=== PATIENT | male | born 1970 | race Caucasian/White ===

== ENCOUNTER 2016-12-09 11:21 | Inpatient (IN) | payer BC ==
[~2016-12-09] VITALS: Ht 182.9 cm; Wt 107.1 kg
[2016-12-09] MEDS ORDERED: SODIUM CHLORIDE 0.9% 1,000 ML IV ONE ×2 (12:32)
[2016-12-09] MEDS ORDERED: MORPHINE SULFATE 4 MG/ML SYRG IV ONE (12:45)
[2016-12-09] MEDS ORDERED: ONDANSETRON HCL 4 MG/2 ML VIAL IV ONE (12:45)
[2016-12-09] MEDS ORDERED: cefTRIAXone 1GM/50ML D5W 50 ML IV ONE ×2 (12:45→15:00)
[2016-12-09 12:52] LABS: Basophils # (auto) 0 uL; Basophils % (auto) 0.1 % (0.0-2.0); CONDITION Y; Eosinophils # (auto) 0.4 uL; Eosinophils % (auto) 1.7 % (0.0-7.0); Hematocrit 47.3 % (41.0-53.0); Hemoglobin 16.2 g/dL (13.5-17.5); Lymphocytes # (auto) 2.4 uL; Lymphocytes % (auto) 11.9 % (10.0-50.0); Mean Corpuscular Hemoglobin 30.9 pg (28.0-32.0); Mean Corpuscular Hgb Conc. 34.3 g/dL (32.0-36.0); Mean Platelet Volume 7.8 fL (7.4-10.4); Monocytes # (auto) 0.7 uL; Monocytes % (auto) 3.6 % (0.0-12.0); Neutrophils # (auto) 16.7 uL; Neutrophils % (auto) 82.7 % (37.0-80.0); Platelet Count (auto) 332 10^3/uL (140-450); Red Cell Distribution Width 13.6 % (11.6-16.0); White Blood Cell 20.3 10^3/uL (4.4-10.8)
[2016-12-09 13:00] LABS: Urine RBC None Seen /hpf (0 - 3)
[2016-12-09 13:06] LABS: Albumin 4.3 g/dL (3.4-5.0); Calcium 9.2 mg/dL (8.5-10.1); Potassium 3.9 mmol/L (3.5-5.1)
[2016-12-09 13:08] LABS: BUN/Creatinine Ratio 12.5
[2016-12-09 13:11] LABS: Bilirubin, Total 0.5 mg/dL (0.2-1.0); Total Protein 7.8 g/dL (6.4-8.2)
[2016-12-09] MEDS ORDERED: HYDROmorphone HCL 2 MG/ML VL IV ONE (13:15)
[2016-12-09 13:30] LABS: INR 0.95 (0.9-1.15); Partial Thromboplastin Time 26.6 sec (22.64-33.71); Prothrombin Time 10.3 sec (9.37-12.3)
[2016-12-09 13:41] LABS: Urine Bilirubin Negative (Negative); Urine Blood Negative /uL (Negative); Urine Color Yellow (Yellow); Urine Glucose Normal (Normal); Urine Ketone TRACE (Negative); Urine Nitrite Negative (Negative); Urine Urobilinogen Normal (Negative); Urine pH 6.5 (5.0-8.0)
[2016-12-09] MEDS ORDERED: TEMAZEPAM 15 MG CAP PO PRN (15:00)
[2016-12-09] MEDS ORDERED: CLINDAMYCIN 900MG IV 50 ML IV ONE (15:00)
[2016-12-09] MEDS ORDERED: MORPHINE SULF INJ 2 MG/ML SYRINGE 1ML IV PRN (15:00)
[2016-12-09] MEDS ORDERED: HYDROcodone-ACET 5/325MG TAB PO PRN (15:00)
[2016-12-09] MEDS ORDERED: ACETAMINOPHEN 500 MG TAB PO PRN (15:00)
[2016-12-09] MEDS ORDERED: NITROGLYCERIN 0.4 MG SL TAB SL PRN (15:00)
[2016-12-09] MEDS ORDERED: LORazepam 0.5 MG TAB PO PRN (15:00)
[2016-12-09] MEDS ORDERED: MORPHINE SULFATE 4 MG/ML SYRG IV PRN (15:00)
[2016-12-09] MEDS ORDERED: metroNIDAZOLE 500MG/100ML 100 ML IV ONE (15:30)
[2016-12-09] MEDS: SODIUM CHLORIDE 0.9% 1,000 ML IV SCH ×2 (16:00→22:01)
[2016-12-09] MEDS ORDERED: LORazepam 2MG/ML-1ML VIAL ONE (16:02)
[2016-12-09] MEDS ORDERED: LORazepam 2MG/ML-1ML VIAL IV ONE (16:15)
[2016-12-09] MEDS ORDERED: MORPHINE SULF INJ 2 MG/ML SYRINGE 1ML ONE (16:21)
[2016-12-09] MEDS ORDERED: ENALAPRILAT 1.25 MG/ML-1ML VIAL IV PRN (16:45)
[2016-12-09] MEDS ORDERED: lamoTRIgine 25 MG TAB PO ONE (16:45)
[2016-12-09] MEDS ORDERED: DEXTROSE (50%) 50ML SYRG IV SCH (16:45)
[2016-12-09] MEDS: FAMOTIDINE (10MG/ML) 2ML VL IV SCH (16:53)
[2016-12-09] MEDS: MORPHINE SULF INJ 2 MG/ML SYRINGE 1ML IV PRN ×2 (16:55→21:54)
[2016-12-09] MEDS: PROMETHAZINE HCL 25 MG/ML 1ML IV PRN (16:55)
[2016-12-09] MEDS ORDERED: ACCU-CHEK COMFORT CURVE STRIP VI SCH (18:00)
[2016-12-09] MEDS ORDERED: InsuLIN REG 1unit/0.01ml Soln (100units/ml) SC SCH (18:00)
[2016-12-09] MEDS ORDERED: NORT25CA PO (18:36)
[2016-12-09] MEDS ORDERED: HYDR12.56 PO (18:36)
[2016-12-09] MEDS ORDERED: ESOM20CA PO (18:36)
[2016-12-09] MEDS ORDERED: LISI40TA PO (18:36)
[2016-12-09] MEDS ORDERED: LAMO100T44 PO (18:36)
[2016-12-09 20:00] VITALS: BP 138/91
[2016-12-09] MEDS ORDERED: SODIUM CHLORIDE 0.9% 100 ML IV SCH (20:00)
[2016-12-09] MEDS: CLINDAMYCIN 600MG IV 50 ML IV SCH (21:54)
[2016-12-09 22:00] VITALS: BP 138/91
[2016-12-09] MEDS: NORTRIPTYLINE HCL 10 MG CAP PO SCH (22:00)
[2016-12-10] MEDS: FAMOTIDINE (10MG/ML) 2ML VL IV SCH ×2 (02:22→15:00)
[2016-12-10] MEDS: MORPHINE SULF INJ 2 MG/ML SYRINGE 1ML IV PRN ×4 (04:28→20:16)
[2016-12-10] MEDS: PROMETHAZINE HCL 25 MG/ML 1ML IV PRN ×3 (04:28→13:45)
[2016-12-10 05:00] VITALS: BP 137/87
[2016-12-10 05:32] LABS: Basophils # (auto) 0 uL; Basophils % (auto) 0.2 % (0.0-2.0); CONDITION Y; Eosinophils # (auto) 0 uL; Hemoglobin 13.8 g/dL (13.5-17.5); Lymphocytes % (auto) 6.9 % (10.0-50.0); Mean Corpuscular Hemoglobin 30.5 pg (28.0-32.0); Mean Corpuscular Hgb Conc. 33.6 g/dL (32.0-36.0); Mean Corpuscular Volume 90.8 fL (80.0-100.0); Mean Platelet Volume 7.9 fL (7.4-10.4); Monocytes # (auto) 0.7 uL; Monocytes % (auto) 4.8 % (0.0-12.0); Neutrophils # (auto) 13.1 uL; Neutrophils % (auto) 88.1 % (37.0-80.0); Platelet Count (auto) 290 10^3/uL (140-450); Red Cell Distribution Width 13.7 % (11.6-16.0); White Blood Cell 14.9 10^3/uL (4.4-10.8)
[2016-12-10] MEDS: SODIUM CHLORIDE 0.9% 1,000 ML IV SCH ×4 (05:59→20:00)
[2016-12-10] MEDS: CLINDAMYCIN 600MG IV 50 ML IV SCH (05:59)
[2016-12-10 06:08] LABS: Albumin 3.4 g/dL (3.4-5.0); BUN/Creatinine Ratio 12.7; Bilirubin, Total 0.8 mg/dL (0.2-1.0); Calcium 8.1 mg/dL (8.5-10.1); Potassium 4.2 mmol/L (3.5-5.1); Total Protein 6.9 g/dL (6.4-8.2)
[2016-12-10 09:00] VITALS: BP 147/87
[2016-12-10] MEDS: cefTRIAXone 1GM/50ML D5W 50 ML IV SCH (09:06)
[2016-12-10 13:00] VITALS: BP 145/85
[2016-12-10] MEDS ORDERED: LIDOCAINE 1% HCL (LOCAL ANESTH.) INJ 20ML MDV ID ONE (15:00)
[2016-12-10] MEDS ORDERED: MORPHINE SULF INJ 2 MG/ML SYRINGE 1ML IV PRN (15:00)
[2016-12-10] MEDS: lamoTRIgine 25 MG TAB PO SCH (15:35)
[2016-12-10 16:10] LABS: Basophils # (auto) 0.1 uL; Basophils % (auto) 0.3 % (0.0-2.0); Eosinophils # (auto) 0.1 uL; Eosinophils % (auto) 0.6 % (0.0-7.0); Hematocrit 40.3 % (41.0-53.0); Lymphocytes # (auto) 1.3 uL; Lymphocytes % (auto) 8.3 % (10.0-50.0); Mean Corpuscular Hemoglobin 30.9 pg (28.0-32.0); Mean Corpuscular Hgb Conc. 34.7 g/dL (32.0-36.0); Mean Platelet Volume 6.8 fL (7.4-10.4); Monocytes # (auto) 0.7 uL; Monocytes % (auto) 4.6 % (0.0-12.0); Neutrophils # (auto) 13.2 uL; Neutrophils % (auto) 86.2 % (37.0-80.0); Nucleated Red Blood Cells % 0.1 %; Platelet Count (auto) 244 10^3/uL (140-450); Red Cell Distribution Width 13.2 % (11.6-16.0); White Blood Cell 15.4 10^3/uL (4.4-10.8)
[2016-12-10 16:55] VITALS: BP 142/76
[2016-12-10] MEDS ORDERED: PPN PER PHARMACY 0 ML IV SCH (17:45)
[2016-12-10] MEDS ORDERED: AMINO ACID INFUSION IN D10W 1,000 ML IV ONE (20:00)
[2016-12-10 22:00] VITALS: BP 139/95
[2016-12-10] MEDS: NORTRIPTYLINE HCL 10 MG CAP PO SCH (22:00)
[2016-12-10] MEDS: SODIUM CHLOR 0.9% PF (SALINE LOCK) 10ML VIAL IV SCH (23:03)
[2016-12-11] MEDS ORDERED: DEXTROSE (50%) 50ML SYRG IV SCH
[2016-12-11] MEDS: MORPHINE SULF INJ 2 MG/ML SYRINGE 1ML IV PRN ×3 (00:30→22:42)
[2016-12-11] MEDS: FAMOTIDINE (10MG/ML) 2ML VL IV SCH ×2 (03:00→15:00)
[2016-12-11 05:00] VITALS: BP 145/98
[2016-12-11] MEDS: ACCU-CHEK COMFORT CURVE STRIP VI SCH ×4 (06:00→17:02)
[2016-12-11] MEDS: InsuLIN REG 1unit/0.01ml Soln (100units/ml) SC SCH ×4 (06:00→17:02)
[2016-12-11 07:12] LABS: Albumin 3.3 g/dL (3.4-5.0); BUN/Creatinine Ratio 15.4; Bilirubin, Total 0.6 mg/dL (0.2-1.0); Calcium 8.5 mg/dL (8.5-10.1); Magnesium 2.3 mg/dL (1.6-2.6); Phosphorus 1.6 mg/dL (2.5-4.90); Potassium 3.7 mmol/L (3.5-5.1); Total Protein 7.4 g/dL (6.4-8.2)
[2016-12-11 07:13] LABS: CONDITION Y; Hematocrit 40.3 % (41.0-53.0); Hemoglobin 13.9 g/dL (13.5-17.5); Mean Corpuscular Hemoglobin 31.3 pg (28.0-32.0); Mean Corpuscular Hgb Conc. 34.5 g/dL (32.0-36.0); Mean Corpuscular Volume 90.5 fL (80.0-100.0); Mean Platelet Volume 8.3 fL (7.4-10.4); Platelet Count (auto) 236 10^3/uL (140-450); Red Cell Distribution Width 13.3 % (11.6-16.0); SUSPECT SEE PRINTOUT; White Blood Cell 18.3 10^3/uL (4.4-10.8)
[2016-12-11 07:18] LABS: Metamyelocytes % 0; Myelocytes % 0; Promyelocytes % 0; Reactive Lymphocytes 0
[2016-12-11 08:00] VITALS: BP 146/92
[2016-12-11 08:15] LABS: Platelet Estimate Adequate
[2016-12-11] MEDS: cefTRIAXone 1GM/50ML D5W 50 ML IV SCH (08:40)
[2016-12-11] MEDS: SODIUM CHLOR 0.9% PF (SALINE LOCK) 10ML VIAL IV SCH ×2 (10:12→22:00)
[2016-12-11] MEDS: SODIUM CHLORIDE 0.9% 1,000 ML IV SCH ×2 (10:12→16:32)
[2016-12-11] MEDS ORDERED: TPN PER PHARMACY 0 ML IV SCH (10:15)
[2016-12-11] MEDS ORDERED: SODIUM PHOSPHATES 24 MEQ in SODIUM CHL 0.9% 100 ML IV ONE (10:30)
[2016-12-11] MEDS: lamoTRIgine 25 MG TAB PO SCH (10:49)
[2016-12-11] MEDS ORDERED: POTASSIUM PHOSPHATE 26.4 MEQ in SODIUM CHL 0.9% 100 ML IV ONE (11:00)
[2016-12-11] MEDS ORDERED: ONDANSETRON HCL 4 MG/2 ML VIAL IV PRN (12:00)
[2016-12-11] MEDS: metroNIDAZOLE 500MG/100ML 100 ML IV SCH ×2 (12:13→17:03)
[2016-12-11 13:00] VITALS: BP 155/88
[2016-12-11 17:00] VITALS: BP 131/92
[2016-12-11] MEDS ORDERED: TEMAZEPAM 15 MG CAP PO PRN (17:30)
[2016-12-11 20:00] VITALS: BP 137/98
[2016-12-11] MEDS ORDERED: TPN PER PHARMACY IV NR ×19 (20:00)
[2016-12-11 22:00] VITALS: BP 137/102
[2016-12-11] MEDS: NORTRIPTYLINE HCL 10 MG CAP PO SCH (22:00)
[2016-12-11 22:55] LABS: Gastric Occult Blood Positive (Negative)
[2016-12-12] MEDS: ACCU-CHEK COMFORT CURVE STRIP VI SCH ×3 (00:06→12:00)
[2016-12-12] MEDS: metroNIDAZOLE 500MG/100ML 100 ML IV SCH ×2 (00:06→06:37)
[2016-12-12] MEDS: SODIUM CHLORIDE 0.9% 1,000 ML IV SCH ×2 (02:00→12:00)
[2016-12-12] MEDS: MORPHINE SULF INJ 2 MG/ML SYRINGE 1ML IV PRN ×3 (04:10→13:43)
[2016-12-12 05:00] VITALS: BP 142/87
[2016-12-12] MEDS: InsuLIN REG 1unit/0.01ml Soln (100units/ml) SC SCH ×3 (06:00→12:00)
[2016-12-12 06:49] LABS: Basophils # (auto) 0.1 uL; Basophils % (auto) 0.8 % (0.0-2.0); Eosinophils # (auto) 0.2 uL; Eosinophils % (auto) 1.9 % (0.0-7.0); Hematocrit 40.1 % (41.0-53.0); Hemoglobin 13.8 g/dL (13.5-17.5); Lymphocytes # (auto) 1.5 uL; Lymphocytes % (auto) 11.8 % (10.0-50.0); Mean Corpuscular Hemoglobin 30.8 pg (28.0-32.0); Mean Corpuscular Hgb Conc. 34.5 g/dL (32.0-36.0); Mean Corpuscular Volume 89.2 fL (80.0-100.0); Mean Platelet Volume 7.1 fL (7.4-10.4); Monocytes % (auto) 7.8 % (0.0-12.0); Neutrophils # (auto) 9.9 uL; Neutrophils % (auto) 77.7 % (37.0-80.0); Platelet Count (auto) 219 10^3/uL (140-450); Red Cell Distribution Width 12.9 % (11.6-16.0); White Blood Cell 12.7 10^3/uL (4.4-10.8)
[2016-12-12 07:07] LABS: Albumin 3.1 g/dL (3.4-5.0); BUN/Creatinine Ratio 15.3; Calcium 8.6 mg/dL (8.5-10.1); Magnesium 2.5 mg/dL (1.6-2.6)
[2016-12-12 07:13] LABS: Bilirubin, Total 0.6 mg/dL (0.2-1.0); Phosphorus 3.2 mg/dL (2.5-4.90)
[2016-12-12] MEDS: cefTRIAXone 1GM/50ML D5W 50 ML IV SCH (08:50)
[2016-12-12 09:00] VITALS: BP 129/83
[2016-12-12] MEDS ORDERED: NEXIUM 20MG PO SCH (10:00)
[2016-12-12] MEDS: SODIUM CHLOR 0.9% PF (SALINE LOCK) 10ML VIAL IV SCH (10:00)
[2016-12-12] MEDS: lamoTRIgine 25 MG TAB PO SCH (10:00)
[2016-12-12 13:00] VITALS: BP 140/94
[2016-12-12 17:00] VITALS: BP 129/82
[2016-12-12] MEDS ORDERED: TPN PER PHARMACY IV NR ×10 (20:00)
== END 2016-12-12 18:20 | disposition short-term general hospital (02) | DRG 872 ==
LOC: ER 11:21 → TELE 11:22 → TELE-WESTW 18:23
PROVIDERS: ADMIT Internal Medicine; ATTEND Internal Medicine
PROC: 02HV33Z Insertion of Infusion Device into Superior Vena Cava, Percutaneous Approach (ICD-10-PCS; principal; 2016-12-10)
DX: A41.9 Sepsis, unspecified organism (principal); E44.0 Moderate protein-calorie malnutrition; K57.20 Diverticulitis of large intestine with perforation and abscess without bleeding; N28.1 Cyst of kidney, acquired; K21.9 Gastro-esophageal reflux disease without esophagitis; I10 Essential (primary) hypertension; F31.9 Bipolar disorder, unspecified; Z82.49 Family history of ischemic heart disease and other diseases of the circulatory system; Z80.9 Family history of malignant neoplasm, unspecified; Z98.890 Other specified postprocedural states; Z87.891 Personal history of nicotine dependence; Z68.32 Body mass index [BMI] 32.0-32.9, adult; Z80.8 Family history of malignant neoplasm of other organs or systems
CPT/HCPCS: 36415; 71010; 74176; 80053; 81001; 82040; 82271; 82962; 83605; 83735; 84100; 84132; 84478; 84484; 85007; 85025; 85027; 85610; 85730; 87040; 93005; 96365; 96367; 96368; 96375; J0696; J1815; J2405; J3490